=== PATIENT | male | born 1990 | race Caucasian/White ===

== ENCOUNTER 2020-08-09 13:10 | Emergency (ER) | payer OTHER ==
[~2020-08-09] VITALS: Ht 180.3 cm; Wt 91.0 kg
[2020-08-09] MEDS ORDERED: ACETAMINOPHEN 325MG TABLET PO ONE (13:30)
[2020-08-09] MEDS ORDERED: TETANUS, DIPHTHERIA, PERTUSSIS VAC/PF 0.5ML (>7YR OLD) IM ONE (13:30)
[2020-08-09] MEDS ORDERED: LIDOCAINE HCL/EPINEPHRINE 1%-EPI 1:100,000 10 ML VIAL IJ ONE (14:45)
[2020-08-09] MEDS ORDERED: LORAZEPAM 2MG/ML CPJ IM ONE (15:00)
[2020-08-09] MEDS ORDERED: LIDOCAINE HCL/EPINEPHRINE 1%-EPI 1:100,000 20 ML VIAL INFIL NR (15:00)
[2020-08-09 15:47] VITALS: BP 111/62
== END 2020-08-09 15:49 ==
LOC: ER 13:45
DX: S01.01XA Laceration without foreign body of scalp, initial encounter (principal); S09.8XXA Other specified injuries of head, initial encounter; Y08.89XA Assault by other specified means, initial encounter; Y93.9 Activity, unspecified; Y92.9 Unspecified place or not applicable
CPT/HCPCS: 12002; 70450; 90715; 99284; A4217; J7040; Z7610; J3490